=== PATIENT | female | born 1980 | race Asian ===

== ENCOUNTER 2017-02-12 09:55 | Inpatient (IN) | payer OTHER ==
[~2017-02-12] VITALS: Ht 152.4 cm; Wt 59.9 kg
[2017-02-12] VITALS (10 sets, daily range): BP systolic 71–109; BP diastolic 46–80
[~2017-02-12 09:55] MED LIST: COL100 PO; NOR10T PO; NORCO1 TA2 PO; ULTRAM50 MG PO; ZOF4 PO
[2017-02-12 11:36] LABS: ALBUMIN 3.8 g/dL (3.4-5.0); ALKALINE PHOSPHATASE 212 U/L (46-116); ALT/SGPT 190 U/L (14-59); AST/SGOT 141 U/L (15-37); BILIRUBIN TOTAL 2.48 mg/dL (0.20-1.00); CALCIUM 8.8 mg/dL (8.5-10.1); CARBON DIOXIDE 25.8 mmol/L (21-32); CREATININE SERUM 0.8 mg/dL (0.6-1.0); GFR1 > 60 mL/min; GLUCOSE SERUM 120 mg/dL (74-106)
[2017-02-12 11:39] LABS: CK-MB < 0.5 ng/mL (0-3.6); CREATINE KINASE 48 U/L (26-192)
[2017-02-12 11:51] LABS: BASOPHIL % 0.3 % (0-2); PLATELET COUNT 261 x10^3mcL (130-400)
[2017-02-12 11:52] LABS: CHLORIDE SERUM 102 mmol/L (98-107); POTASSIUM SERUM 3.5 mmol/L (3.5-5.1); SODIUM SERUM 138 mmol/L (136-145)
[2017-02-12 11:54] LABS: RED CELL DISTRIBUTION WIDTH 15.2 % (11.5-14.5)
[2017-02-12 13:33] LABS: CHOLESTEROL/HDL RATIO 5.3
[2017-02-12 13:41] LABS: FREE T4 1.48 ng/dL (0.76-1.46); FREE THYROXINE INDEX 3.4 ug/dL (1.4-4.5); T3 TOTAL 0.59 ng/mL
[2017-02-12 14:55] LABS: UA SPECIFIC GRAVITY 1.015 (1.005-1.035); microscopic required? YES; urine erythrocyte 3+ (NEGATIVE)
[2017-02-12 15:03] LABS: AMPHETAMINE QUAL UR NONE DETECTED (NEG <=1000)
[2017-02-13 06:11] LABS: CALCIUM 6.8 mg/dL (8.5-10.1); CARBON DIOXIDE 17.9 mmol/L (21-32); CHLORIDE SERUM 113 mmol/L (98-107); CREATININE SERUM 0.6 mg/dL (0.6-1.0); GFR1 > 60 mL/min; GLUCOSE SERUM 73 mg/dL (74-106); MAGNESIUM 1.4 mg/dL (1.8-2.4); PHOSPHOROUS 2.6 mg/dL (2.5-4.9); POTASSIUM SERUM 3.1 mmol/L (3.5-5.1); SODIUM SERUM 145 mmol/L (136-145)
[2017-02-13 06:33] LABS: PLATELET COUNT 157 x10^3mcL (130-400)
[2017-02-13 06:34] LABS: RED CELL DISTRIBUTION WIDTH 15.8 % (11.5-14.5)
[2017-02-13 07:58] VITALS: Ht 152.4 cm; Wt 59.9 kg
[2017-02-13 08:18] VITALS: BP 103/65
[2017-02-13 10:43] LABS: BAND NEUTROPHIL 31 % (0-10); METAMYELOCTE 3 % (0-2); MONOCYTE 4 % (0-7); SEGMENTED NEUTROPHILS 59 % (37-75); rbc morphology (normal/abnorm) ABNORMAL (NORMAL)
[2017-02-13 10:44] LABS: PLATELET MORPHOLOGY PLATELETS NORMAL
[2017-02-13 12:03] VITALS: BP 84/55
[2017-02-13 15:52] VITALS: BP 79/49
[2017-02-13 18:18] VITALS: BP 97/53
[2017-02-13 21:09] VITALS: BP 84/46
[2017-02-14 05:42] VITALS: BP 92/51
[2017-02-14 06:20] LABS: BASOPHIL % 0.1 % (0-2); PLATELET COUNT 159 x10^3mcL (130-400)
[2017-02-14 06:33] LABS: CALCIUM 7.7 mg/dL (8.5-10.1); CARBON DIOXIDE 20.1 mmol/L (21-32); CHLORIDE SERUM 112 mmol/L (98-107); CREATININE SERUM 0.6 mg/dL (0.6-1.0); GFR1 > 60 mL/min; GLUCOSE SERUM 91 mg/dL (74-106); MAGNESIUM 2.2 mg/dL (1.8-2.4); PHOSPHOROUS 1.2 mg/dL (2.5-4.9); POTASSIUM SERUM 4.1 mmol/L (3.5-5.1); SODIUM SERUM 142 mmol/L (136-145)
[2017-02-14 09:10] VITALS: BP 87/47
[2017-02-14 09:12] LABS: BILIRUBIN DIRECT 0.46 mg/dL (0.0-0.2); BILIRUBIN TOTAL 0.74 mg/dL (0.20-1.00)
[2017-02-14 09:21] LABS: ALBUMIN 2.4 g/dL (3.4-5.0); TOTAL PROTEIN, SERUM 5.4 g/dL (6.4-8.2)
[2017-02-14 14:37] VITALS: BP 104/63
[2017-02-14 17:16] VITALS: BP 107/74
[2017-02-14 21:02] VITALS: BP 109/72
[2017-02-15 05:55] VITALS: BP 110/77
[2017-02-15 06:09] LABS: BASOPHIL % 0.3 % (0-2); PLATELET COUNT 171 x10^3mcL (130-400)
[2017-02-15 06:33] LABS: CALCIUM 7.8 mg/dL (8.5-10.1); CARBON DIOXIDE 23.2 mmol/L (21-32); CHLORIDE SERUM 118 mmol/L (98-107); CREATININE SERUM 0.5 mg/dL (0.6-1.0); GFR1 > 60 mL/min; GLUCOSE SERUM 82 mg/dL (74-106); MAGNESIUM 1.7 mg/dL (1.8-2.4); PHOSPHOROUS 2.2 mg/dL (2.5-4.9); POTASSIUM SERUM 3.6 mmol/L (3.5-5.1); SODIUM SERUM 148 mmol/L (136-145)
[2017-02-15 06:47] LABS: RED CELL DISTRIBUTION WIDTH 15.4 % (11.5-14.5)
[2017-02-15 09:43] VITALS: BP 122/83
[2017-02-15 13:17] VITALS: BP 117/79; BP 173/77
[2017-02-15 17:21] VITALS: BP 129/85
[2017-02-15 20:53] VITALS: BP 116/79
[2017-02-16 05:37] VITALS: BP 120/69
[2017-02-16 06:15] LABS: CALCIUM 8.6 mg/dL (8.5-10.1); CARBON DIOXIDE 25.3 mmol/L (21-32); CHLORIDE SERUM 111 mmol/L (98-107); CREATININE SERUM 0.5 mg/dL (0.6-1.0); GFR1 > 60 mL/min; GLUCOSE SERUM 92 mg/dL (74-106); POTASSIUM SERUM 3.9 mmol/L (3.5-5.1); SODIUM SERUM 142 mmol/L (136-145)
[2017-02-16 07:46] LABS: PLATELET COUNT 221 x10^3mcL (130-400)
[2017-02-16 07:52] LABS: RED CELL DISTRIBUTION WIDTH 15.7 % (11.5-14.5)
[2017-02-16 08:26] LABS: ALBUMIN 2.4 g/dL (3.4-5.0); BILIRUBIN DIRECT 0.2 mg/dL (0.0-0.2); BILIRUBIN TOTAL 0.4 mg/dL (0.20-1.00); TOTAL PROTEIN, SERUM 5.8 g/dL (6.4-8.2)
[2017-02-16 09:01] VITALS: BP 99/65
[2017-02-16 09:26] LABS: BAND NEUTROPHIL 2 % (0-10); SEGMENTED NEUTROPHILS 65 % (37-75)
[2017-02-16 09:27] LABS: MONOCYTE 4 % (0-7); PLATELET MORPHOLOGY PLATELETS NORMAL; rbc morphology (normal/abnorm) ABNORMAL (NORMAL)
[2017-02-16] MEDS ORDERED: AUGMENTIN 875-1 EACH PO (13:00)
[2017-02-16 13:05] VITALS: BP 99/65
[2017-02-16 13:26] VITALS: BP 110/78
== END 2017-02-16 13:47 | disposition home or self-care (01) | DRG 720 ==
LOC: ED 09:55 → IC 10:47 → DU 10:47 → IC 22:47 → DU 02-13 17:45
PROVIDERS: Emergency Medicine; Family Medicine; Internal Medicine Gastroenterology; ADMIT Family Medicine
PROC: 0F798DZ Dilation of Common Bile Duct with Intraluminal Device, Via Natural or Artificial Opening Endoscopic (ICD-10-PCS; principal; 2017-02-12 20:00)
PROC: 0FC98ZZ Extirpation of Matter from Common Bile Duct, Via Natural or Artificial Opening Endoscopic (ICD-10-PCS; 2017-02-12 20:00)
PROC: BF10YZZ Fluoroscopy of Bile Ducts using Other Contrast (ICD-10-PCS; 2017-02-12 20:00)
DX: A41.9 Sepsis, unspecified organism (principal); R65.21 Severe sepsis with septic shock; E43 Unspecified severe protein-calorie malnutrition; K80.30 Calculus of bile duct with cholangitis, unspecified, without obstruction; Z68.25 Body mass index [BMI] 25.0-25.9, adult; E83.42 Hypomagnesemia; E83.39 Other disorders of phosphorus metabolism; Z82.49 Family history of ischemic heart disease and other diseases of the circulatory system; Z83.3 Family history of diabetes mellitus; Z80.3 Family history of malignant neoplasm of breast
CPT/HCPCS: 36600; 80307; 83880; 84439; C1769; C2625; G0480; J1170; J1610; J1644; J1885; J1956; J2185; J2405; J2543; J2550; J2704; J3475; J3490; J7030; J7120; P9045; Q0092; Q9967

== ENCOUNTER 2017-04-10 06:21 | Day surgery (SDC) | payer OTHER ==
[2017-04-08 15:52] LABS: CALCIUM 8.9 mg/dL (8.5-10.1); CARBON DIOXIDE 29.9 mmol/L (21-32); CHLORIDE SERUM 106 mmol/L (98-107); CREATININE SERUM 0.6 mg/dL (0.6-1.0); GFR1 > 60 mL/min; GLUCOSE SERUM 89 mg/dL (74-106); POTASSIUM SERUM 3.5 mmol/L (3.5-5.1); SODIUM SERUM 141 mmol/L (136-145)
[2017-04-08 16:44] LABS: BASOPHIL % 0.6 % (0-2); PLATELET COUNT 261 x10^3mcL (130-400); RED CELL DISTRIBUTION WIDTH 14.1 % (11.5-14.5)
[~2017-04-10] VITALS: Ht 165.1 cm; Wt 59.0 kg
[~2017-04-10 06:21] MED LIST changes: +AUGMENTIN 875-1 EACH PO
[2017-04-10 06:28] VITALS: BP 115/86
[2017-04-10 09:44] VITALS: BP 109/73
== END 2017-04-10 09:45 | disposition home or self-care (01) ==
LOC: DS 06:21 → OR 07:30 → DS 07:30 → OR 08:30 → DS 09:45
PROVIDERS: Internal Medicine Gastroenterology
PROC: 0F798ZZ Dilation of Common Bile Duct, Via Natural or Artificial Opening Endoscopic (ICD-10-PCS; principal; 2017-04-10 07:30)
DX: K80.20 Calculus of gallbladder without cholecystitis without obstruction (principal); Z68.22 Body mass index [BMI] 22.0-22.9, adult
CPT/HCPCS: 43260; C1769; J1610; J2704; J7120; Q9967